=== PATIENT | female | born 1985 | race Caucasian/White ===

== ENCOUNTER 2020-10-20 03:40 | Emergency (ER) | payer BC ==
[~2020-10-20] VITALS: Ht 162.6 cm; Wt 57.3 kg
[2020-10-20 03:43] VITALS: Ht 162.6 cm; Wt 57.3 kg
[2020-10-20] MEDS ORDERED: PROPRANOLOL HCL20 MG PO (03:45)
[2020-10-20 04:13] LABS: BASOPHILS 0.9 % (0-2); EOSINOPHILS 5.3 % (0-7); LYMPHOCYTES 31.7 % (15-50); MCH 22.1 pg (26.0-34.0); MCHC 29.4 g/dL (31.0-37.0); MCV 75.1 fL (80.0-100.0); MEAN PLATELET VOLUME 9.2 fL (7.4-10.4); MONOCYTES 8.3 % (2-11); NEUTROPHIL ABS# 3.06 10x3/uL (1.56-6.13); NEUTROPHILS 53.8 % (40-80); PLATELET COUNT 268 10x3/uL (130-400); RBC 4.53 10x6/uL (4.00-5.40); RDW 16.1 % (11.5-14.5); WBC 5.7 10x3/uL (4.8-10.8)
[2020-10-20 04:21] LABS: APTT 30.9 SECONDS (22.8-39.4); INR 1.09 (0.85-1.17); PROTIME 13.1 SECONDS (11.6-15.0)
[2020-10-20 04:25] LABS: CALC OSMOLALITY 274 mosm/kg (275-300); CALCIUM 9.3 mg/dL (8.5-10.1); CARBON DIOXIDE 25.8 mmol/L (21.0-32.0); CHLORIDE - SERUM 102 mmol/L (98-107); CREATININE - SERUM 0.9 mg/dL (0.6-1.3); GLUCOSE 92 mg/dL (74-106); POTASSIUM - SERUM 3.7 mmol/L (3.5-5.1); SODIUM 137 mmol/L (136-145); UREA NITROGEN 15 mg/dL (7-18); eGFR NON AFRICAN AMERICAN 75 mL/min (90-120)
[2020-10-20 04:35] LABS: HCG SERUM NEGATIVE (NEGATIVE)
[2020-10-20 04:41] LABS: ALBUMIN 4.7 g/dL (3.4-5.0); ALKALINE PHOSPHATASE 48 U/L (30-120); ALT (SGPT) 18 U/L (10-68); BILIRUBIN - TOTAL 0.24 mg/dL (0.2-1.3); CREATINE KINASE 37 UL (21-215); PROTEIN - SERUM 8.4 g/dL (6.4-8.2); TROPONIN-I < 0.017 ng/mL (0.000-0.060)
[2020-10-20] MEDS ORDERED: NAPROSYN500 MG PO (04:56)
[2020-10-20 05:16] VITALS: BP 105/59
== END 2020-10-20 05:17 | disposition home or self-care (01) ==
LOC: D.ER 03:40
PROVIDERS: Family Medicine
DX: R07.89 Other chest pain (principal); M94.0 Chondrocostal junction syndrome [Tietze]